=== PATIENT | male | born 1960 | race Caucasian/White ===

== ENCOUNTER → 2016-03-07 | Outpatient (CLI) | payer OTHER ==
[~2016-03-07] MED LIST: NF-ESOM40C PO
--- NOTE | 2016-03-07 10:36 | Diagnostic Imaging Report ---
PROCEDURE: US abdomen complete. TECHNIQUE: Multiple real-time grayscale images were obtained over the abdomen in various projections. The exam was technically difficult. INDICATION: Epigastric pain. Nausea. COMPARISON: 06/29/2015, 10/28/2014. The liver size is normal. The echogenicity is normal with no intrahepatic bile duct dilatation. The CBD is 4-5 mm. Hepatopedal flow is present in the main portal vein. The gallbladder is within normal limits. There is negative sonographic Barajas sign. The pancreas cannot be adequately seen for assessment. Spleen was normal in size and echogenicity at 12 cm in length. The aorta and inferior vena cava are negative. The mid and distal inferior vena cava cannot be visualized. Both kidneys are about 11 cm in length. There is no hydronephrosis or renal lesion. No free fluid was identified. IMPRESSION: 1. Negative abdominal sonogram. Dictated by: Dictated on workstation # [id number]
== END ==
LOC: RAD 07:28
PROVIDERS: ATTEND Family Medicine
DX: R10.13 Epigastric pain (principal); R11.0 Nausea
CPT/HCPCS: 76700